=== PATIENT | male | born 1955 | race Caucasian/White ===

== ENCOUNTER 2017-12-07 07:10 | Emergency (ER) | payer BC ==
[2017-12-07 07:33] VITALS: BP 158/99
--- NOTE | 2017-12-07 07:55 | ED ---
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 Onset a month ago when picking up a piece of pipe. His pain has been getting worse for the past four days, 6/10, worse when lays down and tries to go to sleep at night. Denies bowel or bladder incontinence. Denies weakness or numbness in the legs. No other complaints. - History of Current Complaint Chief Complaint: UCBackPain Stated Complaint: BACK PAIN Time Seen by Provider: 12/07/17 07:30 Pain Intensity: 4 - Allergies/Home Medications Allergies/Adverse Reactions: Allergies Allergy/AdvReac Type Severity Reaction Status Date / Time No Known Allergies Allergy Verified 12/07/17 07:27 Home Medications: Home Medications Acetaminophen [Acetaminophen Extra Strength] 1,000 mg PO Q4H PRN 12/07/17 [ History Confirmed 12/07/17] PMH/Surg Hx/FS Hx/Imm Hx Infectious Disease History: No Infectious Disease History: Denies: Traveled Outside the [place] in Last 30 Days - Social History Alcohol Use: Occasionally Substance Use Type: Reports: None Smoking Status (MU): Never Smoked Tobacco Review of Systems Negative: Fever, Chills Positive: Other - back pain All Other Systems Reviewed And Are Negative: Yes Physical Exam Triage Information Reviewed: Yes Vital Signs On Initial Exam: Initial Vitals Temp Pulse Resp BP Pulse Ox 98.8 F 83 18 158/99 100 12/07/17 07:28 12/07/17 07:28 12/07/17 07:28 12/07/17 07:28 12/07/17 07:28 Vital Signs Reviewed: Yes Appearance: Positive: Well-Appearing, No Pain Distress Skin: Positive: Warm, Skin Color Reflects Adequate Perfusion Head/Face: Positive: Normal Head/Face Inspection Eyes: Positive: EOMI ENT: Positive: Normal ENT inspection Neck: Positive: Supple, Nontender Respiratory/Lung Sounds: Positive: Clear to Auscultation, Breath Sounds Present Cardiovascular: Positive: RRR. Negative: Murmur Abdomen Description: Positive: Nontender. Negative: Distended, Pulsatile Mass Musculoskeletal: Positive: Strength/ROM Intact Neurological: Positive: Sensory/Motor Intact, Alert, Oriented to Person Place, Time, CN Intact II-III, Normal Gait, Speech Normal - Pankaj Coma Scale Best Eye Response: 4 - Spontaneous Best Motor Response: 6 - Obeys Commands Best Verbal Response: 5 - Oriented Coma Scale Total: 15 Diagnostics - Vital Signs Vital Signs Temp Pulse Resp BP Pulse Ox 12/07/17 07:28 98.8 F 83 18 158/99 100 - Laboratory Lab Results: Lab Results 12/07/17 Range/Units 07:36 POC Urine Color Yellow POC Urine Clarity Clear POC Urine pH 5.5 (5-9) POC Ur Specif [place] 1.025 (1.010-1.030) POC Urine Protein 1+ A (Negative) POC Ur Glucose (UA) Negative (Negative) POC Urine Ketones Negative (Negative) POC Urine Blood Trace-lysed A (Negative) POC Urine Nitrite Negative (Negative) POC Urine Bilirubin Negative (Negative) POC Urine Urobilinogen 0.2 (Negative) POC U Leukocyte Esteras Negative (Negative) Lab Statement: Any lab studies that have been ordered have been reviewed, and results considered in the medical decision making process. - CT ct abdomen pelvis CT Interpretation: Positive (See Comments) - final reviewed, and per rad, likely malignant renal tumor with mets. CT Interpretation Completed By: Radiologist Back Pain Course/Dx - Course Course Of Treatment: 62 yr old male with likely malignant renal tumor with mets. He and his have been informed of the findings. I have also contacted Dr Kirk Chavira from [facility], and he is making room in his schedule at the office this morning to see this patient and direct further work up of the patient. The CT scan findings were discussed with Dr Chavira including the renal mass, the likely metatstatic disease to lung, and lymph nodes. - Diagnoses Provider Diagnoses: Renal mass, left, Hypertension Discharge - Discharge Plan Condition: Good Disposition: HOME Patient Education Materials: Flank Pain (ED), Hypertension (ED) Referrals: Agusto Luna MD [Primary Care Provider] - 1 Day David Chavira DO [Doctor of Osteopathy] - 1 Day Additional Instructions: You have a tumor in the left kidney, and it has likely spread to lymph nodes and your lung. You need to see your primary care, Dr Chavira today to get further direction, workup, and care. He is expecting to see you this morning. I have called Dr Chavira and read your CT scan report to him. A copy of your CT scan is being sent with you to his office.
--- NOTE | 2017-12-07 08:19 | RAD ---
CLINICAL HISTORY: Flank pain COMPARISON: None TECHNIQUE: Multiple contiguous axial CT scans were obtained of the abdomen and pelvis, without intravenous contrast enhancement. Coronal and sagittal multiplanar reformations are submitted for review. Oral contrast was not administered. FINDINGS: The study is limited by the lack of intravenous contrast. This limits evaluation of the solid organs and vasculature. LUNG BASES: There is right middle lobe consolidation, incompletely included within the [id number] the current examination. Additionally, there is a nodule of the right lower lobe measuring up to 0.6 cm. LIVER: The liver is normal in shape, size, contour, and attenuation. BILE DUCTS: There is no intrahepatic or extrahepatic biliary dilatation. GALLBLADDER: The gallbladder is normal, without pericholecystic inflammatory change. PANCREAS: The pancreas is normal, without mass or ductal dilatation. SPLEEN: Normal in size and appearance. UPPER GI TRACT: Evaluation of the gastrointestinal tract is limited by incomplete gastric distention. The upper GI tract is unremarkable. SMALL BOWEL AND MESENTERY: The small bowel is normal in contour, course, and caliber. There is no obstruction or dilatation. COLON: There are multiple diverticula of the sigmoid colon. There is no pericolonic inflammatory change. ADRENALS: Normal bilaterally. KIDNEYS: The left kidney is edematous. There is an ill-defined, complex, mass of the upper pole of left kidney measuring approximately 6.2 cm in size. There is nodularity of the perinephric fat BLADDER: The bladder is left and is not well evaluated. PELVIC ORGANS: The prostate gland is normal. The seminal vesicles are symmetric. AORTA: There is minimal calcific atherosclerotic disease of the abdominal aorta and its branches, without aneurysmal dilatation IVC: Unremarkable LYMPH NODES: As noted above, there is nodularity of the perinephric fat. Additionally, there are enlarged periaortic lymph nodes measuring up to 1.1 cm in short axis ABDOMINAL WALL: There is a small fat-containing of focal hernia. BONES AND SOFT TISSUES: There are mild diffuse degenerative changes. OTHER: None IMPRESSION: 1. THERE IS A COMPLEX MASS OF THE UPPER POLE OF LEFT KIDNEY MEASURING 6.2 CM IN SIZE. THERE IS NODULARITY OF THE PERINEPHRIC FAT, CONCERNING FOR LOCAL IMPLANTATION VERSUS LOCAL PATHOLOGIC LYMPH NODES. THERE IS ALSO PERIAORTIC RETROPERITONEAL LYMPHADENOPATHY. ADDITIONALLY, THERE IS A 0.6 CM NODULE OF THE RIGHT LOWER LOBE. THE CONSTELLATION OF FINDINGS IS MOST CONSISTENT WITH METASTATIC RENAL NEOPLASM. 2. ADDITIONALLY, THE LEFT KIDNEY IS EDEMATOUS WHICH MAY REFLECT SUPERIMPOSED INFECTION VERSUS OBSTRUCTIVE UROPATHY. RECOMMEND CORRELATION WITH CLINICAL PRESENTATION. 3. THERE IS CONSOLIDATION OF THE RIGHT MIDDLE LOBE. THIS IS INCOMPLETELY EVALUATED ON THE CURRENT EXAMINATION. GIVEN THE APPARENT PRESENCE OF MALIGNANCY, POSTOBSTRUCTIVE PNEUMONIA IS WITHIN THE DIFFERENTIAL.
== END 2017-12-07 09:03 | disposition home or self-care (01) ==
LOC: UCCORT 07:10
DX: N28.89 Other specified disorders of kidney and ureter (principal); I10 Essential (primary) hypertension
CPT/HCPCS: 74176; 81003; 99201; G0463